=== PATIENT | male | born 1980 | race Caucasian/White ===

== ENCOUNTER 2022-02-02 02:05 | Emergency (ER) | payer MEDICARE ==
[~2022-02-02] VITALS: Ht 170.2 cm; Wt 86.4 kg
[2022-02-02] MEDS ORDERED: BACITRACIN OINTMENT 30GM TUBE TOP STA (07:53)
[2022-02-02] MEDS ORDERED: BACI500O8 TOP (08:27)
[2022-02-02 08:47] VITALS: BP 117/56
== END 2022-02-02 08:45 | disposition home or self-care (01) ==
LOC: M ED 02:05 → EDBD 02:05 → M ED 08:45
DX: S02.2XXA Fracture of nasal bones, initial encounter for closed fracture (principal); S00.31XA Abrasion of nose, initial encounter; Y04.8XXA Assault by other bodily force, initial encounter; Y92.59 Other trade areas as the place of occurrence of the external cause

== ENCOUNTER 2024-04-22 11:02 | Emergency (ER) | payer MEDICARE, OTHER ==
[~2024-04-22] VITALS: Ht 170.2 cm; Wt 79.8 kg
[~2024-04-22 11:02] MED LIST: BACI500O8 TOP
[2024-04-22 11:06] VITALS: BP 138/83; TEMP 97.2; O2SAT 97
[2024-04-22] MEDS: LIDOCAINE 1% MDV 20ML VIAL SC ONE (12:10)
[2024-04-22] MEDS ORDERED: CLIN-250 PO (12:25)
== END 2024-04-22 12:35 | disposition home or self-care (01) ==
LOC: M ED 11:02
DX: L03.011 Cellulitis of right finger (principal)